=== PATIENT | female | born 1980 | race African-American/Black ===

== ENCOUNTER → 2016-07-26 | Outpatient (CLI) | payer BC | LOC: OD 11:41 | PROVIDERS: ATTEND Physician Assistant Medical | DX: M79.642 Pain in left hand (principal) ==

== ENCOUNTER 2016-08-13 10:35 | Day surgery (SDC) | payer BC ==
[2016-08-13] MEDS ORDERED: PROMETHAZINE HCL INJ 25 MG/1 ML VIAL ONE (11:16)
[2016-08-13] MEDS ORDERED: DIPHENHYDRAMINE HCL 50 MG/ML VIAL ONE (11:16)
[2016-08-13] MEDS ORDERED: NALOXONE HCL INJ/PF 0.4 MG/1 ML SDV ONE (11:16)
[2016-08-13] MEDS ORDERED: ONDANSETRON HCL INJ/PF 4 MG/2 ML SDV ONE (11:16)
[2016-08-13] MEDS ORDERED: EPINEPHRINE INJ 1 MG/10 ML DISP.SYRIN ONE (11:17)
[2016-08-13] MEDS ORDERED: FLUMAZENIL INJ 0.5 MG/5 ML VIAL IV ONE (11:17)
[2016-08-13] MEDS ORDERED: GLUCAGON,HUMAN RECOMB 1 MG INJ ONE (11:17)
[2016-08-13] MEDS: MIDAZOLAM 2 MG/2 ML INJ ONE ×2 (11:42→11:48)
[2016-08-13] MEDS: FENTANYL CITRATE INJ/PF 100 MCG/2 ML AMPUL ONE ×2 (11:44→11:47)
--- NOTE | 2016-08-13 12:33 | Operative Report ---
Operative Report DATE OF SURGERY: 08/13/16 Operative Report: The risks benefits and alternatives of the procedure explained to the patient in detail and informed consent is obtained that GIF Olympus video scope was inserted into the patient's mouth and hypopharynx the esophagus is identified intubated and insufflated the scope was then advanced through the esophagus stomach and duodenum retroflexion maneuver is done the esophagus stomach and first and second portions of the duodenum examined PREOPERATIVE DIAGNOSIS: Epigastric pain. History of peptic ulcer disease POSTOPERATIVE DIAGNOSIS: Gastritis status post biopsy OPERATION: EGD with biopsy SURGEON: COMPA RASHEED ANESTHESIA: Moderate Sedation - 4 mg of Zofran, 4 mg of Versed. 100 g of fentanyl. Conscious sedation monitoring time 15 minutes TISSUE REMOVED OR ALTERED: Gastric mucosal specimens obtained rule out Helicobacter pylori COMPLICATIONS: None. ESTIMATED BLOOD LOSS: none. INTRAOPERATIVE FINDINGS: As described above. PROCEDURE: Patient tolerated procedure well. No immediate postprocedure complications are noted. Patient is discharged in good condition. Discharge date 08/13/2016. Discharge diet: Regular. Discharge activity: Regular. 2-3 weeks follow-up appointment to discuss findings Patient will be contacted ahead of time should there be anything significant on pathology We'll await on biopsies Patient is instructed to call the office or proceed to the emergency room should there be any further problems or questions
[2016-08-13 13:02] VITALS: BP 113/65
== END 2016-08-13 13:00 | disposition home or self-care (01) ==
LOC: END 10:35
PROVIDERS: ATTEND Internal Medicine Gastroenterology
PROC: 0DB68ZX Excision of Stomach, Via Natural or Artificial Opening Endoscopic, Diagnostic (ICD-10-PCS; principal; 2016-08-13 11:15)
DX: K29.50 Unspecified chronic gastritis without bleeding (principal); Z87.11 Personal history of peptic ulcer disease; Z79.899 Other long term (current) drug therapy; Z79.1 Long term (current) use of non-steroidal anti-inflammatories (NSAID)
CPT/HCPCS: 43239; 88342 ×2; 88305 ×2; J2250; J0171; J3010; J2405; J1200; J1610; J2310; J2550; J3490